=== PATIENT | female | born 1945 | race Caucasian/White ===

== ENCOUNTER → 2018-03-02 | Outpatient (CLI) | payer OTHER ==
--- NOTE | 2018-03-02 14:00 | EXE ---
[place] [address] STRESS ECHOCARDIOGRAM Name: EVELIA DEL ANGEL Room: [facility]#: [id number] Admission: 03/02/18 Attend Phys: Donnie Ann, Discharge: Date of : 47 Date of Service: 03/02/18 1359 Report #: [id number] THIS REPORT FOR: //name// APPROVED REPORT Study performed: 03/02/2018 11:20:22 Exam: Stress Echocardiogram Indication: Chest pain Patient Location: Out-Patient Stress Nurse: Marleen Solomon RN Supervising Physician: Donnie Ann MD Ht: 5 ft 3 in HR: 83 bpm BP: 157/85 mmHg Medical History Cardiac Risk Factors: HTN, Hyperlipidemia, DM Procedure The patient underwent an Exercise Stress Test using the Guillermo Protocol. Blood pressure, heart rate, and EKG were monitored. An Echocardiogram was performed by biosolids management technician in four stages in quad fashion. At peak stress, four selected images were obtained and placed side by side with resting images for comparison. Stress Test Details Stress Test: Exercise stress testing was performed using a Guillermo protocol. HR Resting HR: 83 bpm Max Heart Rate (APMHR): 149 bpm Max HR Achieved: 169 bpm Target HR (85% APMHR): 126 bpm % of APMHR: 113 Recovery HR: 98 bpm HR response to stress: Normal HR response to stress BP Resting BP: 157/85 mmHg Max BP: 240/80 mmHg Recovery BP: 147/81 mmHg ECG Resting ECG: Sinus Rhythm, RBBB Stress ECG: Sinus Rhythm, RBBB ST Change: [place] [address] STRESS ECHOCARDIOGRAM Name: EVELIA DEL ANGEL Room: [facility]#: [id number] Admission: 03/02/18 Attend Phys: Donnie Ann, Discharge: Date of : 47 Date of Service: 03/02/18 1359 Report #: [id number] Arrhythmia: None Recovery ECG: Sinus Rhythm, RBBB Recovery ST Change: None Recovery Arrhythmia: None Clinical Reason for Termination: Dyspnea Exercise duration: 3 min 14 sec Highest Stage Achieved: Stage 1: 1.7 mph at 10% grade. Exercise capacity: 4.88 METs The patient had limited exercise tolerance and stopped exercise due to dyspnea after 3 minutes and 14 seconds on the standard Guillermo protocol. The patient achieved 113% of the maximum predicted heart rate and it energy expenditure equivalent to 4.88 metastases. She had no chest discomfort with standard Guillermo protocol exercise. Stress ECG Conclusion The baseline 12-lead electrocardiogram showed sinus rhythm with right bundle-branch block. His obtained during and post exercise showed sinus rhythm and sinus tachycardia with persistent right bundle-branch block without significant ST segment changes when compared to baseline. There were no stress-induced arrhythmias. Pre-Stress Echo The resting Echocardiogram showed normal left ventricular contractility with an estimated Ejection Fraction of about 55-60%. Post-Stress Echo The stress Echocardiogram showed normal left ventricular contractility with an estimated Ejection Fraction of about >70%. Clinical No clinical or ECG evidence for ischemia. Conclusion Clinical Response: Non-ischemic Exercise Capacity: Below Average Stress ECG Response: Non-ischemic Stress Echo Images: Non-ischemic The left ventricle is normal in size and wall thickness in both the rest and stress images. Other Information Study Quality: [place] [id number] STRESS ECHOCARDIOGRAM Name: EVELIA DEL ANGEL Room: [facility]#: [id number] Admission: 03/02/18 Attend Phys: Donnie Ann, Discharge: Date of : 47 Date of Service: 03/02/18 1359 Report #: [id number] <Conclusion> The left ventricle is normal in size and wall thickness in both the rest and stress images. <ELECTRONICALLY SIGNED> By: Donnie Ann MD, [facility] 03/02/18 1359 1359 135 Donnie Ann MD, FACC /INF
== END ==
LOC: M.CRD 10:40
DX: I10 Essential (primary) hypertension (principal); E11.9 Type 2 diabetes mellitus without complications; E78.5 Hyperlipidemia, unspecified